=== PATIENT | male | born 1965 | race African-American/Black ===

== ENCOUNTER 2022-08-02 23:22 | Emergency (ER) | payer SELFPAY ==
[~2022-08-02] VITALS: Ht 170.2 cm; Wt 84.0 kg
[2022-08-03 00:53] LABS: CLARITY URINE CLOUDY (CLEAR); COLOR URINE YELLOW (YELLOW); KETONES URINE TRACE (NEGATIVE); LEUKOCYTE ESTERASE URINE 3+ (NEGATIVE); NITRITE URINE NEGATIVE (NEGATIVE); OCCULT BLOOD URINE 3+ (NEGATIVE); PH URINE 5.5 (4.5-8.0); PROTEIN URINE 2+ (NEGATIVE); SPECIFIC GRAVITY URINE 1.017 (1.005-1.030)
[2022-08-03] MEDS ORDERED: LEVO-65 MT (02:23)
[2022-08-03] MEDS ORDERED: LIDOCAINE HCL 1% 20ML VIAL (Pyxis) INJ INFIL ONE (02:30)
[2022-08-03] MEDS ORDERED: CEFTRIAXONE SODIUM 500 MG/VIAL IM ONE (02:30)
[2022-08-03 02:50] VITALS: BP 123/71
== END 2022-08-03 03:10 | disposition home or self-care (01) ==
LOC: ER 23:22
DX: N45.1 Epididymitis (principal); N43.3 Hydrocele, unspecified
CPT/HCPCS: 76870; 81003; 87086; 93976; 96372; 99285; J0696; J3490

== ENCOUNTER 2024-04-01 11:49 | Emergency (ER) | payer MEDICAID ==
[~2024-04-01] VITALS: Ht 172.7 cm; Wt 82.0 kg
[~2024-04-01 11:49] MED LIST: LEVO-65 MT
[2024-04-01 12:06] VITALS: O2SAT 100
[2024-04-01 12:42] LABS: CLARITY URINE CLEAR (CLEAR); COLOR URINE YELLOW (YELLOW); GLUCOSE URINE NEGATIVE (NEGATIVE); KETONES URINE NEGATIVE (NEGATIVE); LEUKOCYTE ESTERASE URINE NEGATIVE (NEGATIVE); NITRITE URINE NEGATIVE (NEGATIVE); OCCULT BLOOD URINE NEGATIVE (NEGATIVE); PH URINE 5.5 (4.5-8.0); PROTEIN URINE 1+ (NEGATIVE); SPECIFIC GRAVITY URINE 1.016 (1.005-1.030)
[2024-04-01 13:02] LABS: BACTERIA URINE NONE SEEN; RBC URINE 0-2 /hpf (0-2); SQUAMOUS EPITHELIAL CELL URINE NONE SEEN /lpf (RARE/1+); WBC URINE 0-2 /hpf (0-2); YEAST URINE NONE SEEN
[2024-04-01] MEDS: CEFTRIAXONE SODIUM 500MG VIAL IM SCH (13:20)
[2024-04-01] MEDS: DOXYCYCLINE HYCLATE 100MG CAPSULE PO SCH (13:27)
[2024-04-01] MEDS: LIDOCAINE HCL 1% 20ML VIAL INFIL SCH (13:27)
[2024-04-01] MEDS ORDERED: DOXY100C5 MT (13:27)
[2024-04-01 13:33] VITALS: BP 116/74; PULSE 67; RESP 16; TEMP 37.16964; O2SAT 99
[2024-04-03 08:14] LABS: CHLAMYDIA TRACHOMATIS NAA Negative (Negative); NEISSERIA GONORRHOEAE NAA Negative (Negative)
== END 2024-04-01 13:34 | disposition home or self-care (01) ==
LOC: ER 11:49
DX: N48.89 Other specified disorders of penis (principal); Z20.2 Contact with and (suspected) exposure to infections with a predominantly sexual mode of transmission
CPT/HCPCS: 99283; 87491; 87591; 81003; 96372; J0696; J3490